=== PATIENT | male | born 1950 | race Caucasian/White ===

== ENCOUNTER 2016-10-13 16:17 | Observation (INO) | payer MEDICARE, OTHER ==
[~2016-10-13] VITALS: Ht 188 cm; Wt 100.7 kg
[~2016-10-13 16:17] MED LIST: ALPR-229; LOSA50TA30; METO-169
[2016-10-13 16:54] LABS: Basophils # (auto) 0 uL; Basophils % (auto) 0.2 % (0.0-2.0); CONDITION Y; Eosinophils # (auto) 0.1 uL; Eosinophils % (auto) 1.2 % (0.0-7.0); Hematocrit 48.1 % (41.0-53.0); Hemoglobin 16.4 g/dL (13.5-17.5); Lymphocytes # (auto) 1.6 uL; Lymphocytes % (auto) 20.6 % (10.0-50.0); Mean Corpuscular Hemoglobin 30.9 pg (28.0-32.0); Mean Corpuscular Hgb Conc. 34.2 g/dL (32.0-36.0); Mean Corpuscular Volume 90.5 fL (80.0-100.0); Mean Platelet Volume 8.1 fL (7.4-10.4); Monocytes # (auto) 0.6 uL; Monocytes % (auto) 7.7 % (0.0-12.0); Neutrophils # (auto) 5.5 uL; Neutrophils % (auto) 70.3 % (37.0-80.0); Platelet Count (auto) 288 10^3/uL (140-450); Red Cell Distribution Width 13.3 % (11.6-16.0); White Blood Cell 7.8 10^3/uL (4.4-10.8)
[2016-10-13 17:10] LABS: Urine Bilirubin Negative (Negative); Urine Blood Negative /uL (Negative); Urine Color Yellow (Yellow); Urine Ketone Negative (Negative); Urine Mucus FEW (None Seen); Urine Nitrite Negative (Negative); Urine RBC <1 /hpf (0 - 3); Urine Urobilinogen Normal (Negative)
[2016-10-13] MEDS ORDERED: PANTOPRAZOLE 40 MG/10 ML VIAL IV STA (17:10)
[2016-10-13] MEDS ORDERED: SODIUM CHLORIDE 0.9% 1,000 ML IVB ONE (17:10)
[2016-10-13] MEDS ORDERED: HYDROmorphone HCL 2 MG/ML VL IV ONE (17:15)
[2016-10-13] MEDS ORDERED: ONDANSETRON HCL 4 MG/2 ML VIAL IV ONE (17:15)
[2016-10-13 17:16] LABS: Chloride 96 mmol/L (98-107); Potassium 3.7 mmol/L (3.5-5.1); Sodium 128 mmol/L (136-145)
[2016-10-13 17:23] LABS: Albumin 3.9 g/dL (3.4-5.0); Alkaline Phosphatase 52 U/L (45-117); Anion Gap 9 (5-15); BUN/Creatinine Ratio 17.3; Bilirubin, Total 0.3 mg/dL (0.2-1.0); Blood Urea Nitrogen 13 mg/dL (7-18); Calcium 8.4 mg/dL (8.5-10.1); Carbon Dioxide 23 mmol/L (21-32); GFR African American 134 mL/min; GFR Non-African American 110 mL/min; Glucose 182 mg/dL (74-106); Total Protein 6.6 g/dL (6.4-8.2)
[2016-10-13 17:30] LABS: Aspartate Aminotransferase 16 U/L (15-37)
[2016-10-13] MEDS ORDERED: cloNIDine HCL 0.1 MG TAB PO ONE (17:30)
[2016-10-13 17:38] LABS: Amylase 44 U/L (25-115)
[2016-10-13 17:39] LABS: Urine Glucose 2+ mg/dL (Normal)
[2016-10-13 18:34] VITALS: BP 148/90
== END 2016-10-13 19:35 | disposition home or self-care (01) | DRG 313 ==
LOC: ER 16:20 → OVERFLOW 17:14 → ER 19:35
PROVIDERS: ADMIT Family Medicine; ATTEND Family Medicine
DX: R07.89 Other chest pain (principal); I10 Essential (primary) hypertension; F41.9 Anxiety disorder, unspecified; K21.9 Gastro-esophageal reflux disease without esophagitis; N40.0 Benign prostatic hyperplasia without lower urinary tract symptoms; R11.0 Nausea; K57.30 Diverticulosis of large intestine without perforation or abscess without bleeding; M19.90 Unspecified osteoarthritis, unspecified site; Z80.9 Family history of malignant neoplasm, unspecified; Z98.890 Other specified postprocedural states
CPT/HCPCS: 36415; 71020; 73200; 74176; 80053; 81001; 82150; 83690; 84484; 85025; 93005; 96361; 96374; 96375; 99285; C9113; G0378; J1170; J2405; J7030

== ENCOUNTER 2018-07-07 07:07 | Emergency (ER) | payer MEDICARE, OTHER ==
[~2018-07-07] VITALS: Ht 182.9 cm; Wt 98.9 kg
[2018-07-07 07:33] VITALS: BP 119/77
[2018-07-07] MEDS ORDERED: KETOROLAC TROMETH 30 MG/ML 1ML VIAL IM ONE (07:45)
== END 2018-07-07 09:13 | disposition home or self-care (01) ==
LOC: ER 07:07
DX: M71.21 Synovial cyst of popliteal space [Baker], right knee (principal); K21.9 Gastro-esophageal reflux disease without esophagitis; E78.5 Hyperlipidemia, unspecified; I10 Essential (primary) hypertension; Z79.899 Other long term (current) drug therapy
CPT/HCPCS: 93971; 96372; 99284; J1885

== ENCOUNTER 2020-10-06 17:30 | Emergency (ER) | payer MEDICARE, OTHER ==
[~2020-10-06] VITALS: Ht 180.3 cm; Wt 94.3 kg
[~2020-10-06 17:30] MED LIST changes: -ALPR-229; +ALPR2TAB6; -METO-169; +METO-289
[2020-10-06 17:41] VITALS: BP 136/82
[2020-10-06 20:28] LABS: Basophils # (auto) 0 10 ^3/uL (0-0.2); Basophils % (auto) 0.2 % (0.0-2.0); Eosinophils # (auto) 0 10 ^3/uL (0-0.8); Eosinophils % (auto) 0.2 % (0.0-7.0); Hematocrit 47.2 % (41.0-53.0); Hemoglobin 16.9 g/dL (13.5-17.5); Lymphocytes % (auto) 16.2 % (10.0-50.0); Mean Corpuscular Hemoglobin 32.6 pg (28.0-32.0); Mean Corpuscular Hgb Conc. 35.8 g/dL (32.0-36.0); Monocytes # (auto) 0.9 10 ^3/uL (0-1.3); Monocytes % (auto) 13.8 % (0.0-12.0); Neutrophils # (auto) 4.3 10 ^3/uL (1.6-8.6); Neutrophils % (auto) 69.6 % (37.0-80.0); Nucleated Red Blood Cells % 0.1 %; Red Blood Cells 5.19 10^6/uL (4.5-5.90); Red Cell Distribution Width 12.3 % (11.8-14.3); White Blood Cell 6.2 10^3/uL (4.4-10.8)
[2020-10-06 21:45] LABS: Alanine Aminotransferase 42 U/L (16-61); Albumin 3.9 g/dL (3.4-5.0); Alkaline Phosphatase 57 U/L (45-117); Anion Gap 7 (5-15); Aspartate Aminotransferase 19 U/L (15-37); BUN/Creatinine Ratio 12.8; Bilirubin, Total 0.4 mg/dL (0.2-1.0); Blood Urea Nitrogen 10 mg/dL (7-18); Calcium 8.5 mg/dL (8.5-10.1); Carbon Dioxide 28 mmol/L (21-32); Chloride 89 mmol/L (98-107); GFR African American 126 mL/min; GFR Non-African American 104 mL/min; Glucose 104 mg/dL (74-106); Potassium 4.4 mmol/L (3.5-5.1); Sodium 124 mmol/L (136-145); Total Protein 6.7 g/dL (6.4-8.2)
== END 2020-10-06 21:54 | disposition left against medical advice (07) ==
LOC: ER 17:30
DX: U07.1 COVID-19 (principal); R51.9 Headache, unspecified; E86.0 Dehydration; I10 Essential (primary) hypertension; K21.9 Gastro-esophageal reflux disease without esophagitis; E78.5 Hyperlipidemia, unspecified
CPT/HCPCS: 36415; 70450; 71045; 80053; 84484; 85025; 87426

== ENCOUNTER 2022-02-13 23:37 | Emergency (ER) | payer MEDICARE, OTHER ==
[~2022-02-13] VITALS: Ht 180.3 cm; Wt 95.0 kg
[2022-02-14 00:57] LABS: Basophils # (auto) 0 10 ^3/uL (0-0.2); Basophils % (auto) 0.3 % (0.0-2.0); Eosinophils # (auto) 0.5 10 ^3/uL (0-0.8); Hematocrit 44.1 % (41.0-53.0); Hemoglobin 15.1 g/dL (13.5-17.5); Lymphocytes % (auto) 33.9 % (10.0-50.0); Mean Corpuscular Hemoglobin 31.8 pg (28.0-32.0); Mean Corpuscular Hgb Conc. 34.3 g/dL (32.0-36.0); Mean Corpuscular Volume 92.7 fL (80.0-100.0); Monocytes # (auto) 0.6 10 ^3/uL (0-1.3); Monocytes % (auto) 10.4 % (0.0-12.0); Neutrophils # (auto) 2.8 10 ^3/uL (1.6-8.6); Neutrophils % (auto) 47.4 % (37.0-80.0); Nucleated Red Blood Cells % 0.1 %; Red Blood Cells 4.76 10^6/uL (4.5-5.90); Red Cell Distribution Width 12.7 % (11.8-14.3)
[2022-02-14 01:08] LABS: Albumin 3.8 g/dL (3.4-5.0); BUN/Creatinine Ratio 16.1; Calcium 8.6 mg/dL (8.5-10.1); Potassium 4.2 mmol/L (3.5-5.1)
[2022-02-14 01:11] LABS: Bilirubin, Total 0.4 mg/dL (0.2-1.0); Total Protein 6.2 g/dL (6.4-8.2)
[2022-02-14 01:12] LABS: INR 0.98 (0.9-1.15); Partial Thromboplastin Time 26.3 sec (24.6-33.4)
[2022-02-14 03:38] VITALS: BP 124/80
== END 2022-02-14 04:36 | disposition home or self-care (01) ==
LOC: ER 23:37
DX: R07.89 Other chest pain (principal); I10 Essential (primary) hypertension; K21.9 Gastro-esophageal reflux disease without esophagitis; E78.5 Hyperlipidemia, unspecified; Z79.899 Other long term (current) drug therapy
CPT/HCPCS: 36415; 71045; 80053; 83880; 84484; 85025; 85610; 85730; 93005

== ENCOUNTER 2022-11-26 16:32 | Emergency (ER) | payer MEDICARE, OTHER ==
[~2022-11-26] VITALS: Ht 180.3 cm; Wt 95.4 kg
[2022-11-26 17:18] VITALS: BP 134/77; PULSE 87; RESP 20; TEMP 97.8; O2SAT 97
[2022-11-26] MEDS ORDERED: TETANUS-DIPTH-ACEL PERTUSSIS 0.5ML SYR Tdap IM ONE (17:30)
== END 2022-11-26 17:54 | disposition home or self-care (01) ==
LOC: ER 16:32
DX: S61.213A Laceration without foreign body of left middle finger without damage to nail, initial encounter (principal); I10 Essential (primary) hypertension; K21.9 Gastro-esophageal reflux disease without esophagitis; E78.5 Hyperlipidemia, unspecified; Z79.899 Other long term (current) drug therapy; W26.8XXA Contact with other sharp object(s), not elsewhere classified, initial encounter; Y93.89 Activity, other specified; Y92.89 Other specified places as the place of occurrence of the external cause; Y99.8 Other external cause status
CPT/HCPCS: 12001; 90471; 90715; 99283; J2001

== ENCOUNTER 2022-12-08 09:07 | Emergency (ER) | payer MEDICARE, OTHER ==
[~2022-12-08] VITALS: Ht 180.3 cm; Wt 95.9 kg
[2022-12-08 10:29] VITALS: BP 121/72; PULSE 82; RESP 18; TEMP 96.7; O2SAT 95
== END 2022-12-08 10:46 | disposition home or self-care (01) ==
LOC: ER 09:07
DX: S61.213D Laceration without foreign body of left middle finger without damage to nail, subsequent encounter (principal); I10 Essential (primary) hypertension; F41.9 Anxiety disorder, unspecified; E78.5 Hyperlipidemia, unspecified; K21.9 Gastro-esophageal reflux disease without esophagitis; Z48.00 Encounter for change or removal of nonsurgical wound dressing; Z98.890 Other specified postprocedural states; Z79.899 Other long term (current) drug therapy; X58.XXXD Exposure to other specified factors, subsequent encounter

== ENCOUNTER 2023-04-15 20:56 | Inpatient (IN) | payer MEDICARE, OTHER ==
[~2023-04-15] VITALS: Ht 180.3 cm; Wt 99.5 kg
[2023-04-15 21:15] LABS: Basophils # (auto) 0 10 ^3/uL (0-0.2); Basophils % (auto) 0.6 % (0.0-2.0); Eosinophils # (auto) 0.2 10 ^3/uL (0-0.8); Eosinophils % (auto) 2.9 % (0.0-7.0); Hematocrit 49.9 % (41.0-53.0); Hemoglobin 17.4 g/dL (13.5-17.5); Lymphocytes # (auto) 2.1 10 ^3/uL (0.4-5.4); Lymphocytes % (auto) 30.3 % (10.0-50.0); Mean Corpuscular Hemoglobin 32.8 pg (28.0-32.0); Mean Corpuscular Hgb Conc. 34.8 g/dL (32.0-36.0); Mean Corpuscular Volume 94.2 fL (80.0-100.0); Monocytes # (auto) 0.9 10 ^3/uL (0-1.3); Monocytes % (auto) 12.3 % (0.0-12.0); Neutrophils # (auto) 3.8 10 ^3/uL (1.6-8.6); Neutrophils % (auto) 53.9 % (37.0-80.0); Nucleated Red Blood Cells % 0.6 %; Red Cell Distribution Width 12.5 % (11.8-14.3)
[2023-04-15 21:34] LABS: Alanine Aminotransferase 27 U/L (7-40); Albumin 4.2 g/dL (3.2-4.8); Alkaline Phosphatase 78 U/L (46-116); Anion Gap 4 (5-15); Aspartate Aminotransferase 18 U/L (13-40); BUN/Creatinine Ratio 7.1 (10.0-20.0); Bilirubin, Total 0.4 mg/dL (0.2-1.0); Blood Urea Nitrogen 7 mg/dL (9-23); Calcium 9.3 mg/dL (8.5-10.1); Carbon Dioxide 27 mmol/L (20-30); Chloride 104 mmol/L (98-107); Glucose 131 mg/dL (74-106); Sodium 135 mmol/L (136-145); Total Protein 6.1 g/dL (5.7-8.2)
[2023-04-15] MEDS: ALBUTEROL SULF 2.5 MG/0.5ML(0.5%) NEB SOLN HHN ONE (23:26)
[2023-04-15] MEDS: IPRATROPIUM BROM 0.5 MG/2.5ML INH SOL HHN ONE (23:27)
[2023-04-16] VITALS (9 sets, daily range): BP systolic 126–140; BP diastolic 70–78; PULSE 67–99; RESP 16–18; TEMP 97.4–98.2; O2SAT 95–99
[2023-04-16] MEDS: ASPirin 81 mg TAB PO ONE (01:40)
[2023-04-16] MEDS: NITROGLYCERIN 0.2MG/HR TOPICAL PATCH TD ONE (01:40)
[2023-04-16] MEDS: PANTOPRAZOLE 40 MG/10 ML VIAL INJ IV ONE (01:40)
[2023-04-16 02:09] LABS: COVID19 ANTIGEN SOFIA FIA NEGATIVE (NEGATIVE); Rapid Influenza A Negative (Negative); Rapid Influenza B Negative (Negative)
[2023-04-16] MEDS ORDERED: ALBUTEROL SULF 2.5 MG/0.5ML(0.5%) NEB SOLN NEB PRN ×2 (04:45→05:00)
[2023-04-16] MEDS ORDERED: MORPHINE SULFATE INJ 2 MG/ml SYRG IV PRN ×2 (04:45→05:00)
[2023-04-16] MEDS ORDERED: ONDANSETRON HCL 4 MG/2 ML VIAL IV PRN ×2 (04:45→05:00)
[2023-04-16] MEDS ORDERED: NITROGLYCERIN 0.4 MG SL TAB SL PRN ×2 (04:45→05:00)
[2023-04-16] MEDS ORDERED: ACETAMINOPHEN 325 MG TAB PO PRN ×2 (04:45→05:00)
[2023-04-16] MEDS: PANTOPRAZOLE 40 MG TAB PO SCH (09:54)
[2023-04-16] MEDS: ENOXAPARIN SOD 40 MG/0.4 ML SYRINGE SC SCH (09:54)
[2023-04-16] MEDS: ASPirin 81 mg TAB PO SCH (09:54)
[2023-04-16] MEDS: METOPROLOL SUCCINATE XL 50 MG TAB PO SCH (09:54)
[2023-04-16] MEDS ORDERED: METOPROLOL SUCCINATE XL 50 MG TAB PO SCH (10:00)
[2023-04-16] MEDS ORDERED: PANTOPRAZOLE 40 MG TAB PO SCH (10:00)
[2023-04-16] MEDS ORDERED: ENOXAPARIN SOD 40 MG/0.4 ML SYRINGE SC SCH (10:00)
[2023-04-16] MEDS ORDERED: ASPirin 81 mg TAB PO SCH (10:00)
[2023-04-16] MEDS: TAMSULOSIN HYDROCHLORIDE 0.4 MG CAP PO SCH (17:37)
[2023-04-16] MEDS ORDERED: TAMSULOSIN HYDROCHLORIDE 0.4 MG CAP PO SCH (18:00)
[2023-04-16] MEDS ORDERED: MONTELUKAST SODIUM 10 MG TAB PO SCH (22:00)
[2023-04-16] MEDS ORDERED: ATORVASTATIN 20 MG TAB PO SCH (22:00)
[2023-04-16] MEDS ORDERED: ALPR0.5T7 PO (22:05)
[2023-04-16] MEDS: FLUTICASONE PROP NASAL SPR 0.05 % (50MCG) 16GM EACHNOSTRI SCH (22:07)
[2023-04-16] MEDS: ATORVASTATIN 20 MG TAB PO SCH (22:07)
[2023-04-16] MEDS: MONTELUKAST SODIUM 10 MG TAB PO SCH (22:08)
[2023-04-16] MEDS: AMOXICILLIN/CLAVUL 875 MG TAB PO SCH (22:08)
[2023-04-16] MEDS: ALPRAZolam 0.5 MG TAB PO ONE (23:26)
[2023-04-17 05:00] VITALS: BP 124/69; PULSE 72; RESP 18; TEMP 98; O2SAT 94
[2023-04-17 07:11] LABS: Chloride 104 mmol/L (98-107); Potassium 4.3 mmol/L (3.5-5.1); Sodium 137 mmol/L (136-145)
[2023-04-17 07:13] LABS: Anion Gap 3 (5-15); Calcium 9.5 mg/dL (8.5-10.1); Carbon Dioxide 30 mmol/L (20-30)
[2023-04-17 07:18] LABS: BUN/Creatinine Ratio 8.1 (10.0-20.0); Blood Urea Nitrogen 7 mg/dL (9-23); Glucose 90 mg/dL (74-106)
[2023-04-17 08:15] VITALS: PULSE 73
[2023-04-17 09:00] VITALS: BP 112/72; PULSE 77; RESP 18; TEMP 98.4; O2SAT 95
[2023-04-17 11:35] VITALS: O2SAT 95
[2023-04-17 12:34] VITALS: BP 132/81; PULSE 94; RESP 18; TEMP 98.2; O2SAT 97
[2023-04-17] MEDS ORDERED: AUG875T PO (13:03)
[2023-04-17 13:10] VITALS: BP 123/80; PULSE 72; RESP 20; TEMP 98.2; O2SAT 97
== END 2023-04-17 14:00 | disposition home or self-care (01) | DRG 149 ==
LOC: ER 20:56 → TELE 04-16 04:45 → TELE-EAST 04-16 09:36
PROVIDERS: ADMIT Nurse Practitioner; ATTEND Family Medicine
DX: H81.03 Meniere's disease, bilateral (principal); R00.0 Tachycardia, unspecified; K21.9 Gastro-esophageal reflux disease without esophagitis; J01.90 Acute sinusitis, unspecified; E66.9 Obesity, unspecified; I10 Essential (primary) hypertension; F41.9 Anxiety disorder, unspecified; E78.00 Pure hypercholesterolemia, unspecified; M51.36 Other intervertebral disc degeneration, lumbar region; N40.0 Benign prostatic hyperplasia without lower urinary tract symptoms; J06.9 Acute upper respiratory infection, unspecified; Z68.30 Body mass index [BMI] 30.0-30.9, adult
CPT/HCPCS: 36415; 71045; 80048; 80053; 83605; 83735; 83880; 84443; 84484; 85025; 87426; 87804; 93005; 93306; 94640; 94660; 96374; C9113; G0378

== ENCOUNTER 2023-11-01 10:45 | Emergency (ER) | payer MEDICARE, OTHER ==
[~2023-11-01] VITALS: Ht 182.9 cm; Wt 95.0 kg
[~2023-11-01 10:45] MED LIST changes: +ALPR0.5T7 PO; +AUG875T PO
[2023-11-01 12:21] LABS: Basophils # (auto) 0 10 ^3/uL (0-0.2); Basophils % (auto) 0.3 % (0.0-2.0); Eosinophils # (auto) 0.3 10 ^3/uL (0-0.8); Eosinophils % (auto) 5.6 % (0.0-7.0); Hematocrit 50.5 % (41.0-53.0); Hemoglobin 17.7 g/dL (13.5-17.5); Lymphocytes # (auto) 1.3 10 ^3/uL (0.4-5.4); Lymphocytes % (auto) 22.5 % (10.0-50.0); Mean Corpuscular Hemoglobin 33.7 pg (28.0-32.0); Mean Corpuscular Hgb Conc. 35.1 g/dL (32.0-36.0); Mean Corpuscular Volume 96.3 fL (80.0-100.0); Monocytes # (auto) 0.7 10 ^3/uL (0-1.3); Monocytes % (auto) 11.8 % (0.0-12.0); Neutrophils # (auto) 3.5 10 ^3/uL (1.6-8.6); Neutrophils % (auto) 59.8 % (37.0-80.0); Nucleated Red Blood Cells % 0.2 %; Platelet Count (auto) 181 10^3/uL (140-450); Red Blood Cells 5.25 10^6/uL (4.5-5.90); White Blood Cell 5.9 10^3/uL (4.4-10.8)
[2023-11-01 12:36] LABS: Alanine Aminotransferase 24 U/L (7-40); Albumin 4.3 g/dL (3.2-4.8); Alkaline Phosphatase 56 U/L (46-116); Anion Gap 6 (5-15); Aspartate Aminotransferase 12 U/L (13-40); BUN/Creatinine Ratio 13.8 (10.0-20.0); Blood Urea Nitrogen 12 mg/dL (9-23); Calcium 9.2 mg/dL (8.7-10.4); Carbon Dioxide 29 mmol/L (20-30); Chloride 100 mmol/L (98-107); Glucose 94 mg/dL (74-106); Potassium 4.9 mmol/L (3.5-5.1); Sodium 135 mmol/L (136-145)
[2023-11-01 12:37] LABS: Bilirubin, Total 0.7 mg/dL (0.2-1.0); Total Protein 6.2 g/dL (5.7-8.2)
[2023-11-01 15:21] VITALS: PULSE 79; RESP 20; O2SAT 95
[2023-11-01] MEDS ORDERED: ACET-1304 PO (16:10)
[2023-11-01] MEDS ORDERED: DICY10CA PO (16:10)
[2023-11-01] MEDS ORDERED: OMEP-434 PO (16:10)
[2023-11-01 16:18] VITALS: BP 134/82; PULSE 67; RESP 17; TEMP 98.3; O2SAT 96
== END 2023-11-01 16:31 | disposition home or self-care (01) ==
LOC: ER 10:45
DX: R10.13 Epigastric pain (principal); K21.9 Gastro-esophageal reflux disease without esophagitis; E78.5 Hyperlipidemia, unspecified; I10 Essential (primary) hypertension
CPT/HCPCS: 36415; 71046; 80053; 84484; 85025; 93005